=== PATIENT | male | born 1950 | race Caucasian/White ===

== ENCOUNTER 2018-04-13 10:01 | Day surgery (SDC) | payer OTHER ==
[2018-04-13] MEDS ORDERED: FENTAnyl 50 MCG/ML VIAL (12:22)
[2018-04-13] MEDS ORDERED: MIDAZOLAM 1 MG/ML 2 ML INJ ×3 (12:22)
== END 2018-04-13 14:40 | disposition home or self-care (01) ==
LOC: GIL 10:01
DX: Z12.11 Encounter for screening for malignant neoplasm of colon (principal); K64.8 Other hemorrhoids; I10 Essential (primary) hypertension; E11.9 Type 2 diabetes mellitus without complications
CPT/HCPCS: 45378